=== PATIENT | male | born 1975 | race Caucasian/White ===

== ENCOUNTER → 2023-10-21 | Outpatient (CLI) | payer SELFPAY ==
[2023-10-21 15:12] LABS: Amphetamine Urine VISTA NEGATIVE (<1000 ng/mL); Barbiturate Urine VISTA NEGATIVE (< 200 ng/mL); Benzodiazepine Urine VISTA NEGATIVE (< 200 ng/mL); Cocaine Urine VISTA NEGATIVE (< 300 ng/mL); Ecstacy Urine VISTA NEGATIVE (< 500 ng/mL); Methadone Urine VISTA NEGATIVE (< 300 ng/mL); PCP Urine VISTA NEGATIVE (< 25 ng/mL); THC Urine VISTA NEGATIVE (< 50 ng/mL); Vista UDS pH Range 4
--- OUTSIDE RECORDS SUMMARY | 2023-10-21 21:08 | XMS RPT_ITS | CCD ---
Author Name Unknown Address [address] [place] [address] [address] [place] [id number] Organization [facility] Care Team Providers Care Linen Clerk Name Role Phone Free, Text Entry Unavailable Unavailable Jai Carvajal Unavailable Unavailable Luis Angel Newton Unavailable Allergies Allergy Classification Reported Allergen(s) Allergy Type Date of Onset Reaction(s) Facility (1 source) Aspartame Drug Allergy Unknown [facility] (4 sources) Cats Claw Drug allergy Unknown [facility] Other (4 sources) aspertame Propensity to adverse reactions Unknown [facility] Other Medications Current Medications Medication Drug Class(es) Dates Sig (Normalized) Sig (Original) acetaminophen 325 mg / oxyCODONE hydrochloride 5 mg oral tablet (4 sources) Opioid Agonist Start: 05-29-2021 take 1 tablet by mouth twice daily as needed oxyCODONE-Acetami nophen 5-325 MG 1 tablet as needed Orally up to twice daily as needed for 30 days May, Active cyclobenzaprine hydrochloride 5 mg oral tablet (4 sources) Muscle Relaxant take 1 tablet by mouth three times daily as needed Flexeril 5 MG 1 tablet as needed Orally three times daily as needed for 7 days Active dicyclomine hydrochloride 20 mg oral tablet (1 source) Anticholinergic Start: 12-08-2021 take 1 tablet by mouth four times daily dicyclomine 20 mg oral tablet ; 1 tab(s) orally 4 times a day (1 hour before meals and at bedtime) Quantity: 20 Refills: 0 Ordered: 08-Dec-2021 Jai Carvajal Start: 08-Dec-2021 Generic Substitution Allowed Comments: May cause drowsiness. Alcohol may intensify this effect. Use care when operating dangerous machinery. Problems Active Problems Problem Classification Problem Date Documented Date Episodic/Chronic Abdominal pain (1 source) Abdominal pain - cause unknown; Translations: [Abdominal pain, unspecified site] 12-08-2021 Episodic Other nervous system disorders (4 sources) Chronic pain; Translations: [Other chronic pain] Chronic Other nervous system disorders (3 sources) Other chronic pain; Translations: [Other chronic pain G89.29] Onset: 05-21-2021 Resolved: 07-03-2021 Chronic Spondylosis; intervertebral disc disorders; other back problems (20 sources) Degeneration of intervertebral disc; Translations: [Other intervertebral disc degeneration, lumbar region] Onset: 05-21-2021 Resolved: 10-02-2021 Chronic Unclassified (2 sources) R LOWER SIDE PAIN 12-08-2021 Past or Other Problems Problem Classification Problem Date Documented Da te Episodic/Chronic Other non-traumatic joint disorders (4 sources) Hip pain; Translations: [Pain in unspecified hip] Episodic Spondylosis; intervertebral disc disorders; other back problems (4 sources) Lumbosacral neuritis; Translations: [Radiculopathy, lumbosacral region] Episodic Sprains and strains (8 sources) Lumbar sprain; Translations: [Sprain of ligaments of lumbar spine, initial encounter] Episodic Substance-related disorders (8 sources) Continuous opioid dependence; Translations: [Opioid use, unspecified, uncomplicated] Onset: 05-21-2021 Resolved: 10-02-2021 Episodic Results Test Name Value Interpretation Reference Range Facil ity Vital Signs Date Time Vital Sign Value Performing Clinician Facility 12-08-2021 03:45-0400 Diastolic blood pressure 94 mm[Hg] Text Entry Free [facility] 12-08-2021 03:45-0400 Heart rate 67 /min Text Entry Free [facility] [place] 12-08-2021 03:45-0400 Respiratory rate 16 /min Text Entry Free [facility] [place] 12-08-2021 03:45-0400 SaO2% (BldA) [Mass fraction] 97 % Text Entry Free [facility] 12-08-2021 03:45-0400 Systolic blood pressure 126 mm[Hg] Text Entry Free [facility] 10-02-2021 09:45-0500 Body height 170.18 cm Luis Angel Newton Other [facility] Other 10-02-2021 09:45-0500 Body mass index (BMI) [Ratio] 31.32 kg/m2 Luis Angel Remier Other [facility] Other 10-02-2021 09:45-0500 Body weight 90.72 kg Luis Angel Remier Other [facility] Other 05-21-2021 11:15-0400 Body height 170.18 cm Luis Angel Remier Other [facility] Other 05-21-2021 11:15-0400 Body mass index (BMI) [Ratio] 31.63 kg/m2 Luis Angel Khaliler Other [facility] Other 05-21-2021 11:15-0400 Body weight 91.63 kg Luis Angel Remier Other [facility] Other Encounters Encounter Date Encounter Type Care Provider Facility Start: 12-08-2021 End: 12-08-2021 Emergency department patient visit Jai Carvajal [facility] Emergency 01 Start: 10-02-2021 End: 10-02-2021 ambulatory Luis Angel Newton Other [facility] Other Start: 10-02-2021 Office outpatient vi sit 15 minutes Luis Angel Khaliler [facility] [place] Start: 07-03-2021 End: 07-03-2021 ambulatory Luis Angel Newton Other [facility] Other Start: 07-03-2021 Office outpatient vi sit 15 minutes Luis Angel Khaliler [facility] [place] Start: 06-09-2021 Office outpatient vi sit 15 minutes Luis Angel Felter [facility] [place] Start: 05-21-2021 Office outpatient vi sit 15 minutes Luis Angel Felter [facility] [place] Plan of Treatment Date Care Activity Detail Author Start: 12-08-2021 End: 12-08-2022 Sodium Chloride 0.9% Injectable Flush Peripheral Line ; via Peripheral LineVolume = 10 mL IntraVenous Flush Every 8 Hours and as Needed Start: 07-Dec-2021 End: 07-Dec-2022 Ordered: 07-Dec-2021 Jai Carvajal Intent [facility] Payers Date Payer Category Payer Policy ID Medicare [id number] 2.1 [id number] Unknown Social History Date Type Detail Facility [employer] Other Tobacco smoking consumption unknown [facility] Sex Assigned At Sex Assigned At Bir th [facility] Other Evaluation note 10-02-2021 Note Date & Type Note Facility [facility] Other Evaluation note 07-03-2021 Note Date & Type Note Facility [facility] Other Evaluation note 06-09-2021 Note Date & Type Note Facility [facility] Other Evaluation note 05-21-2021 Note Date & Type Note Facility [facility] Other History general Narrative - Reported 01-21-2017 Note Date & Type Note Facility [facility] Other Summary Purpose Family History No Family History Records FoundNo Family History Records FoundNo Family History Records FoundNo Family History Records Found Advance Directives No Advanced Directives Records FoundNo Advanced Directives Records FoundNo Advanced Directives Records FoundNo Advanced Directives Records Found Additional Source Comments (unrecognized sect ion and content) No Status Records FoundNo Status Records FoundNo Status Records FoundNo Status Records Found INFORMATION SOURCE (unrecogn ized section and content) DATE CREATED AUTHOR AUTHOR'S ORGANIZ ATION 08/27/2020 [facility] DATE CREATED AUTHOR AUTHOR'S ORGANIZ ATION 09/17/2021 [facility] DATE CREATED AUTHOR AUTHOR'S ORGANIZ ATION 12/11/2021 [facility] <item> Privacy Markings (unrecogniz ed section and content) Section Author: Caryn Graham PROHIBITION ON REDISCLOSURE OF CONFIDENTIAL INFORMATION This notice accompanies a disclosure of information concerning a client made to you with the consent of such client. REASON FOR VISIT (unrecogniz ed section and content) FOLLOW UP AFTER RIGHT CERV[employer] [place] SELF PAY - 1 MONTHBACK SELF PAY - 1 MONTHRECHECK BACK SELF PAY FOR RECORDS PERTAINING TO PATIENTS WHO ARE OR HAVE BEEN ENROLLED IN A CHEMICAL DEPENDENCY/SUBSTANCEABUSE PROGRAM, SOME INFORMATION MAY BE OMITTED. This clinical summary was aggregated from multiple sources. Caution should be exercised in using it in the provision of clinical care. This summary normalizes information from multiple sources, and as a consequence, information in this document may materially change the coding, format and clinical context of patient data. In addition, data may be omitted in some cases. CLINICAL DECISIONS SHOULD BE BASED ON THE PRIMARY CLINICAL RECORDS. [employer] provides no warranty or guarantee of the accuracy or completeness of information in this document.
== END | disposition home or self-care (01) ==
LOC: LAB 13:40
PROVIDERS: Referring Provider Anesthesiology; Visit Provider Anesthesiology
DX: M96.1 Postlaminectomy syndrome, not elsewhere classified (principal)
CPT/HCPCS: 80307